=== PATIENT | male | born 1975 | race Caucasian/White ===

== ENCOUNTER 2021-04-19 12:11 | Outpatient (CLI) | payer OTHER, SELFPAY ==
--- NOTE | ~2021-04-19 | XR_ITS ---
EXAMINATION: XR chest 2V DATE: 04/19/2021 12:37 INDICATION: Shortness of breath TECHNIQUE: PA and lateral views of the chest are obtained. COMPARISON: None available FINDINGS: The lungs are free of acute opacities. There is no pleural effusion or pneumothorax. The ca rdiomediastinal silhouette is normal. The visualized bones and soft tissues are unremarkable. IMPRESSION: 1. No acute cardiopulmonary abnormality. Reviewed, dictated and finalized at location A. [facility] [employer]
== END 2021-04-19 12:12 | disposition home or self-care (01) ==
LOC: CHSIMG 12:17
PROVIDERS: PCP Family Medicine
DX: R06.00 Dyspnea, unspecified (principal); R07.89 Other chest pain
CPT/HCPCS: 71046

== ENCOUNTER 2021-07-05 07:06 | Outpatient (CLI) | payer OTHER, SELFPAY ==
--- NOTE | ~2021-07-05 | CT_ITS ---
EXAMINATION: CT sinus wo con DATE: 07/05/2021 07:28 INDICATION: Nasal congestion. Chronic sinusitis. TECHNIQUE: Computed tomography (CT) of the paranasal sinuses was performed without intravenous contra st. The dose-length product was 309.35 mGy-cm. Automated exposure control and iterative reconstructio n technique were employed. COMPARISON: CT dated 05/28/2010 FINDINGS: There is mucosal thickening of the ethmoid, maxillary and sphenoid sinuses rightward nasal septal deviation. There is soft tissue occlusion of the ostiomeatal units. No significant mucoperiost eal reaction. Mastoids are pneumatized. There are chronic nasal fractures. IMPRESSION: 1. Moderate chronic sinusitis. Reviewed, dictated and finalized at location B. BASIC
== END 2021-07-05 07:07 | disposition home or self-care (01) ==
LOC: CHSIMG 07:07
PROVIDERS: PCP Family Medicine
DX: R09.81 Nasal congestion (principal)
CPT/HCPCS: 70486

== ENCOUNTER 2021-10-07 00:46 | Day surgery (SDC) | payer OTHER, SELFPAY ==
[2021-10-03 09:38] VITALS: BMI 29.6
--- NOTE | 2021-10-03 09:39 | PC.NURSE ---
Report to the Outpatient Waiting Room, entrance under the green pavilion located off [facility], at time _0700__ on date _10-07-21_. OR Time: _0900_. - You and your visitor will be asked a series of questions to screen for COVID 19 for your protection. - Only one visitor is allowed at this time. - The patient visitor is requested to leave or wait in car when not with patient. - A mask is required within the hospital. Patients may have clear liquids (water, carbonated beverages, clear teas, apple juice) until 3 hours prior to surgery with a maximum of 20 ounces. - No food from midnight until time of surgery - Infants may have breast milk until 4 hours before surgery, formula 6 hours prior to surgery. - Children will be allowed to drink immediately following surgery. If applicable, please bring a bottle or sippy cup to assist with drinking. Juice, water, soda, and popsicles are readily available. For infants on formula, please bring formula the day of surgery. Pacifiers are allowed. Take the following medications with a SIP of water the morning of surgery: ____None Medications to discontinue per physician None Date to take last dose Please no make-up, nail frisian, hairspray, perfume, deodorant, or body powder the day of surgery. No jewelry (including any body piercings) or valuables the day of surgery, leave them at home. Please take a shower or bath the night before, or the morning of, surgery with an antibacterial soap. Wear comfortable, loose fitting clothing. Children are encouraged to wear pajamas. - Jewelry must be removed prior to entering the operating room. Rings and piercings that are not removed may be cut off. - The hospital will not accept responsibility for valuables. - Please leave all valuables, including medications, at home the day of surgery. If you are going home after surgery, a licensed cdl dedicated truck driver must drive you home. - NO public transportation without another adult. - We recommend that an adult stay with you for 24 hours following discharge. - We also recommend that you do not drive, make important decision, drink alcoholic beverages, or take any drugs that were not prescribed by your health care provider for at least 24 hours after your discharge time. For Pediatric surgeries, we recommend two adults accompany the child home (only one inside the building at this time). Follow any additional instructions given to you from your surgeon. If you or anyone in your household have experienced Covid symptoms in the past week, please notify your surgeon or the nurse liaison at the phone number below for possible testing. Telephone instructions given to Patient and asked if any additional questions and then verbalized understanding. Patient advised to call surgeon office or pre surgery nurse liaison [phone] if any additional questions.
--- NOTE | 2021-10-05 23:26 | PM.IMHP ---
H&P: HPI History of Present Illness Date/Time: 10/05/21 23:26 Chief Complaint: septal deviation turbinate hypertrophy chronic sinusitis nasal polyposis nasal obstruction nasal congestion Narrative: patient presents for planned surgical procedure no change in symptoms no change in history PMFSH Social History Social History (Updated 07/18/21 @ 15:38 by Patrica Cowan MA) Smoking status: Never smoker Alcohol intake: current Substance use: never Living arrangements: with family Gender identity (if verbalized by the patient): Male Spiritual care concerns: No Meds Home Medications and Allergies Home Medications Medication Instructions Recorded Confirmed Type fluticasone propionate 50 2 spray intranasal BID #16 mL 07/20/21 10/03/21 Rx mcg/actuation nasal spray,suspension (Flonase Allergy Relief) prednisone 10 mg tablet 10 mg PO DAILY #3 tabs 10/03/21 Rx Allergies Allergy/AdvReac Type Severity Reaction Status Date / Time Penicillins Allergy Severe PT. DOES Verified 10/03/21 09:29 NOT REMEMBER Sulfa (Sulfonamide Allergy Severe PT. DOES Verified 10/03/21 09:29 Antibiotics) NOT REMEMBER Exam HENMT: Other: Septal deviation turbinate hypertrophy Assessment and Plan Assessment and plan (1) Nasal obstruction: Code(s): J34.89 - Other specified disorders of nose and nasal sinuses Status: Acute Assessment and Plan: Plan is The OR for image guided bilateral maxillary antrostomies total ethmoidectomies frontal sinusotomy sphenoidotomy inferior turbinate reduction with outfracture and septoplasty ?total operative time 2.5 hours. Risks were discussed including bleeding infection CSF leak brain damage blindness change in vision need for further procedures postoperative bleeding septal perforation failure to resolve symptoms need for continue medical management. Damage to any structure by the clavicles by myself damage to any structure during the induction and remains of anesthesia. Patient voiced understanding and agreed. (2) PND (post-nasal drip): Code(s): R09.82 - Postnasal drip Status: Acute (3) Chronic sinusitis: Code(s): J32.9 - Chronic sinusitis, unspecified Status: Acute (4) Nasal polyps: Code(s): J33.9 - Nasal polyp, unspecified Status: Acute (5) Hypertrophy of both inferior nasal turbinates: Code(s): J34.3 - Hypertrophy of nasal turbinates Status: Acute (6) Nasal septal deviation: Code(s): J34.2 - Deviated nasal septum Status: Acute
[2021-10-07] VITALS (12 sets, daily range): BP systolic 122–151; BP diastolic 74–94; PULSE 59–151; RESP 12–20; TEMP 36.3–36.4; O2SAT 98–100
--- NOTE | 2021-10-07 07:16 | WPDHPUPDATE1 ---
History and Physical Update Update Date/Time: 10/07/21 07:16 History and Physical has been reviewed, including an updated exam of the patient. There are NO changes in the patient's condition. Risks, benefits, and alternatives have been discussed and questions answered. Patient agrees to proceed with procedure.
[2021-10-07] MEDS: LACTATED RINGERS 1,000 ML 30 ML IV CONT ×3 (07:30→13:34)
--- NOTE | 2021-10-07 07:35 | P.PNAN_ITS ---
Anes - Initial Pre Proc Eval Procedure: Operation Date: 10/07/21 08:00 Proposed Procedures p Image Guided Bilateral Maxillary Antrostomy, Total Ethmoidectomy, Frontal Sinusotomy, Bilateral Sphenoidotomy, Bilateral Inferior Turbinectomy with Outfracture, - Carlin Blackman MD s Septoplasty - Carlin Blackman MD Date/Time: 10/07/21 07:35 Surgeon: Carlin Blackman MD Pre Op Diagnosis: chronic sinusitis Patient Data Age: 46 Gender: M Height: 1.75 m Weight: 91 kg Last Vital Signs Temp 36.3 C L 10/07/21 06:55 Pulse 151 H 10/07/21 06:55 Resp 16 10/07/21 06:55 BP 151/94 H 10/07/21 06:55 Pulse Ox 100 10/07/21 06:55 O2 Del Method Room Air 10/07/21 06:55 Allergies Allergy/AdvReac Type Severity Reaction Status Date / Time Penicillins Allergy Severe PT. DOES Verified 10/07/21 06:51 NOT REMEMBER Sulfa (Sulfonamide Allergy Severe PT. DOES Verified 10/07/21 06:51 Antibiotics) NOT REMEMBER Home Medications Medication Instructions Recorded Confirmed Type fluticasone propionate 50 2 spray intranasal BID #16 mL 07/20/21 10/07/21 Rx mcg/actuation nasal spray,suspension (Flonase Allergy Relief) prednisone 10 mg tablet 10 mg PO DAILY #3 tabs 10/03/21 10/07/21 Rx Patient hx anesthesia problems: none Family hx anesthesia problems: none Results Review: All pre-operative results and documents have been reviewed as part of the pre- operative evaluation. [facility] Past Medical History Medical History (Updated 10/07/21 @ 07:35 by Floyd Dolan MD) Overweight Social History Social History (Updated 07/18/21 @ 15:38 by Patrica Cowan MA) Smoking status: Never smoker Alcohol intake: current Substance use: never Living arrangements: with family Gender identity (if verbalized by the patient): Male Spiritual care concerns: No Anes - Eval Final PreProcedure Day of Procedure 10/07/21 07:35 Patient weight: overweight Heart: regular rate and rhythm Lungs: clear to auscultation Airway: Mallampati scale class II Neurological: alert and oriented ASA classification: II Emergent: no Anesthesia type and monitoring: general ETT and standard monitoring Results Review: All pre-operative results and documents have been reviewed as part of the pre- operative evaluation. Informed Consent: The patient's anesthetic plan and its attendant risks and benefits were discussed with the patient/family/POA. Questions were solicited and answers provided to the satisfaction of the patient/family/POA.
[2021-10-07] MEDS: ACETAMINOPHEN 500 MG TABLET 1000 MG PO (07:44)
[2021-10-07] MEDS: ceFAZolin 2 GM/D5W 50 ML 2 GM/50 ML BAG IVPB (08:09)
[2021-10-07] MEDS: LIDO 1%/EPINEPHRINE/PF 1:200,000 30 ML VIAL 5 ML XX (08:28)
[2021-10-07] MEDS: OXYMETAZOLINE HCL 0.05% NAS 15 ML BTL (*BKC) 1 SPRAY NASAL (08:28)
--- NOTE | 2021-10-07 12:13 | P.OP_ITS ---
Procedure Note - Detailed Date of Procedure 10/07/21 Pre-op Diagnosis chronic sinusitis, nasal polyps, septal deviation, turbinate hypertrophy, nasal obstruction, nasal congestion Post-op Diagnosis Same Procedure Performed Endoscopic assisted septoplasty inferior turbinate submucosal resection with outfracture bilateral image guided endoscopic maxillary antrostomies total ethmoidectomies frontal sinusotomies sphenoidotomy middle turbinectomy bilateral Surgeon Carlin Blackman MD Indications See above Findings Up polyps especially on the right side and right sphenoid fungal ball removed completely. No complications. Small frontal outflow tracts cannulated well though. Description of Procedure Patient identified consent verified. Patient brought operating. Time-out performed. General anesthesia induced endotracheal tube secured taped left lower lip. Patient prepped and draped for procedure. Second time-out performed. Image guidance initiated verified. Afrin-soaked pledgets placed allowed to sit for 5 minutes the nasal passages then removed. 10 cc 1% local 1 100,000 parts epinephrine injected deep to the nasal septum inferior turbinates bilateral middle turbinates. Tab incision made left side of nasal septum with a 15 blade left nasal septal flap elevated with 7 [place] suction osteotome utilized across the septum right nasal septal flap elevated. Even nasal septum removed with Harry forceps Deven Campbell forceps and osteotome. Septum closed anteriorly using 2 interrupted 5 0 fast gut sutures. Turbinates reduced in the submucosal plane the inferior turbinates bilaterally using microdebrider 2 mm blade. They were then outfractured. Maxillary antrostomies performed with image guidance double ball tip probe backbiter straight through cut. Total ethmoidectomies performed with 2 3 Kerrison as well as micro debrider which was also image guidance. Image guidance was utilized throughout the procedure to confirm the orbits were never violated and skull base were never violated. Sphenoidotomies performed with 1 Kerrison sphenoid punch and 2 3 Kerrison. The right had a large fungal ball which took 20-30 minutes to remove in flush out totality. Back to front skull base dissection then performed orbits excuse me lamina exposed bilaterally insuring good resection of all the disease cells. Polyps throughout the aforementioned cells especially on the right side. Middle turbinates removed using straight through cut suction Bovie at the stumps allowing access to the polypoid disease, the also had polyps emanating from. Frontal sinuses cannulated using 70 degree suction image guided frontal sinus seeker as well as 70 degree scope. Patient tolerated the procedure very very well. Bilateral nasal passages suction total blood loss about 200 cc. Nova pack placed bilaterally. Martinez splints placed bilaterally sutured anteriorly using a 3-0 interrupted nylon suture. I performed all dictated portions care the patient turned over to Anesthesiology no immediate complications. Estimated Blood Loss -200.0 Drains No Packing Yes (No pack) Pathology None sent Complications No immediate complications Condition Stable Disposition PACU
[2021-10-07] MEDS: fentaNYL CITRATE INJ (*CRX) 100 MCG/2 ML VIAL 25 MCG IV PUSH ×4 (12:22→13:00)
[2021-10-07] MEDS: ONDANSETRON INJ 4 MG/2 ML VIAL IV PUSH (12:35)
[2021-10-07] MEDS: diphenhydrAMINE HCl INJ 50 MG/ML VIAL 25 MG IV PUSH (14:27)
[2021-10-07] MEDS: SCOPOLAMINE 1.5 MG PATCH TRANSDERM (14:30)
== END 2021-10-07 15:05 | disposition home or self-care (01) ==
PROVIDERS: PCP Family Medicine; Visit Provider Otolaryngology
PROC: (CPT 31256; principal; 2021-10-07 08:00)
PROC: (CPT 30520; 2021-10-07 08:00)
DX: J32.9 Chronic sinusitis, unspecified (principal); J33.9 Nasal polyp, unspecified; J34.3 Hypertrophy of nasal turbinates; J34.2 Deviated nasal septum; R09.82 Postnasal drip; J34.89 Other specified disorders of nose and nasal sinuses; B48.8 Other specified mycoses
CPT/HCPCS: 31256; 31253; 31287; 61782; 30999; 30140; 30520; A9270; J0330; J0690; J1100; J1170; J1200; J2250; J2405; J2704; J3010; J7120

== ENCOUNTER 2022-06-30 20:41 | Emergency (ER) | payer OTHER, SELFPAY ==
[2022-06-30 20:46] VITALS: BP 157/116; PULSE 98; RESP 20; TEMP 37; O2SAT 97
--- NOTE | 2022-06-30 20:56 | ED.SKABFB ---
HPI - Skin/Abscess/Foreign Bdy General Chief complaint: Unspecified Stated complaint: Rash Time Seen by Provider: 06/30/22 20:50 History of Present Illness HPI narrative: 47-year-old male patient is here with rash all over his body for the last 3 days. Patient states that he broke out 3 days ago and had mild itching but today the itching has been more persistent. He thinks that the rash is getting worse. He did take Benadryl this morning and early afternoon with very little effect. Apparently has had rash in the past as well. Patient recalls no new medications. He has been using budesonide nasal spray for a long time For nasal polyps and has had said she has felt in the past. Patient denies any swallowing difficulty. He denies any wheezing. Related Data Allergies Allergy/AdvReac Type Severity Reaction Status Date / Time Penicillins Allergy Severe PT. DOES Verified 06/30/22 21:01 NOT REMEMBER Sulfa (Sulfonamide Allergy Severe PT. DOES Verified 06/30/22 21:01 Antibiotics) NOT REMEMBER Review of Systems Review of Systems: All systems reviewed & are unremarkable except as noted in HPI and below PMFSH Past Medical History Medical History Overweight Social History Social History Smoking status: Never smoker Alcohol intake: current Substance use: never Living arrangements: with family Gender identity (if verbalized by the patient): Male Spiritual care concerns: No Exam Narrative: Alert male patient in no acute distress. Stable vital signs except initial Blood pressure elevated at 157/116 and repeat blood pressure down to 135/101. HEENT is normal. Uvula is midline. There is no posterior pharyngeal wall edema or any evidence of angioedema intraorally. Neck is supple. Lungs are clear bilaterally. Heart tones are regular. Skin: diffuse urticaria is noted from neck down to the entire torso and extremities. There is some blanching of the areas. There are no vesicular rash. There is no linear pattern to the rash. The interdigital web spaces are clear of any rash are the hands both on the dorsal and the palmar side. Neurologic examination is normal. Mood and affect are normal. Course Course Emergency Course: Patient has a mildly from itching after the medication. He is aware of the discharge plans. Will send the patient home with a prescription for prednisone as well as hydroxyzine. He has been advised to follow-up with his primary care provider and maybe consider a RAST test after discussing it with his primary care provider Vital Signs Vital signs: Vital Signs Temperature 37.0 C 06/30/22 20:46 Pulse Rate 98 06/30/22 20:46 Respiratory Rate 20 06/30/22 20:46 Blood Pressure 157/16 H 06/30/22 20:46 Pulse Oximetry 97 06/30/22 20:46 Oxygen Delivery Room Air 06/30/22 20:46 Temperature 37.0 C 06/30/22 20:46 Pulse Rate 98 06/30/22 20:46 Respiratory Rate 20 06/30/22 20:46 Blood Pressure 157/16 H 06/30/22 20:46 Pulse Oximetry 97 06/30/22 20:46 Oxygen Delivery Room Air 06/30/22 20:46 Discharge Plan Discharge Clinical Impression: Acute urticaria Patient Disposition: Home, Self-Care Condition: Stable Additional Instructions: Avoid hot water, use tepid water for bathing May use Cereve with Pramixone 1% lotion to alleviate itching symptoms Medications as prescribed Follow up with yourr primary care provider in 3-5 days or sooner Prescriptions: New methylprednisolone [Medrol (Wilbert)] 4 mg tablets,dose pack 4 mg PO DAILY Qty: 21 0RF hydroxyzine HCl 25 mg tablet 25 mg PO TID Qty: 20 0RF No Action budesonide 0.25 mg/2 mL suspension for nebulization 0.25 mg irrigation BID Qty: 120 3RF Rx Instructions: Place in irrigation, irrigate two times per day Follow-up/Referrals: Hunter Scott
[2022-06-30 21:25] VITALS: BP 135/101; PULSE 86; RESP 16; O2SAT 97
[2022-06-30 21:43] VITALS: BP 144/97; PULSE 83; RESP 16; O2SAT 93
--- NOTE | 2022-06-30 21:47 | ED.GENADULT ---
HPI - General Adult General Chief complaint: Unspecified Stated complaint: Rash Time Seen by Provider: 06/30/22 20:50 Related Data Allergies Allergy/AdvReac Type Severity Reaction Status Date / Time Penicillins Allergy Severe PT. DOES Verified 06/30/22 21:01 NOT REMEMBER Sulfa (Sulfonamide Allergy Severe PT. DOES Verified 06/30/22 21:01 Antibiotics) NOT REMEMBER PMFSH Past Medical History Medical History Overweight Social History Social History Smoking status: Never smoker Alcohol intake: current Substance use: never Living arrangements: with family Gender identity (if verbalized by the patient): Male Spiritual care concerns: No Course Vital Signs Vital signs: Vital Signs Temperature 37.0 C 06/30/22 20:46 Pulse Rate 98 06/30/22 20:46 Respiratory Rate 20 06/30/22 20:46 Blood Pressure 157/116 H 06/30/22 20:46 Pulse Oximetry 97 06/30/22 20:46 Oxygen Delivery Room Air 06/30/22 20:46 Temperature 37.0 C 06/30/22 20:46 Pulse Rate 83 06/30/22 21:43 Respiratory Rate 16 06/30/22 21:43 Blood Pressure 144/97 H 06/30/22 21:43 Pulse Oximetry 93 06/30/22 21:43 Oxygen Delivery Room Air 06/30/22 20:46 Medical Decision Making Vital Signs Vital Signs: Vital Signs Temperature 37.0 C 06/30/22 20:46 Pulse Rate 98 06/30/22 20:46 Respiratory Rate 20 06/30/22 20:46 Blood Pressure 157/116 H 06/30/22 20:46 Pulse Oximetry 97 06/30/22 20:46 Oxygen Delivery Room Air 06/30/22 20:46 Temperature 37.0 C 06/30/22 20:46 Pulse Rate 83 06/30/22 21:43 Respiratory Rate 16 06/30/22 21:43 Blood Pressure 144/97 H 06/30/22 21:43 Pulse Oximetry 93 06/30/22 21:43 Oxygen Delivery Room Air 06/30/22 20:46 Discharge Plan Discharge Clinical Impression: Acute urticaria Patient Disposition: Home, Self-Care Condition: Stable Additional Instructions: Avoid hot water, use tepid water for bathing May use Cereve with Pramixone 1% lotion to alleviate itching symptoms Medications as prescribed Follow up with yourr primary care provider in 3-5 days or sooner Prescriptions: New methylprednisolone [Medrol (Wilbert)] 4 mg tablets,dose pack 4 mg PO DAILY Qty: 21 0RF hydroxyzine HCl 25 mg tablet 25 mg PO TID Qty: 21 0RF No Action budesonide 0.25 mg/2 mL suspension for nebulization 0.25 mg irrigation BID Qty: 120 3RF Rx Instructions: Place in irrigation, irrigate two times per day Follow-up/Referrals: Hunter Scott M.D. [Primary Care Provider] - Time of Disposition: 21:41
== END 2022-06-30 22:20 | disposition home or self-care (01) ==
PROVIDERS: Emergency Provider Emergency Medicine; PCP Family Medicine
DX: L50.9 Urticaria, unspecified (principal)
CPT/HCPCS: 96372; 99283; J1100